=== PATIENT | female | born 1995 | race African-American/Black ===

== ENCOUNTER 2017-08-03 20:59 | Emergency (ER) | payer SELFPAY ==
[~2017-08-03] VITALS: Ht 165.1 cm; Wt 102.5 kg
[2017-08-04 05:07] VITALS: BP 109/58
== END 2017-08-04 05:07 | disposition home or self-care (01) ==
LOC: ER 21:27
DX: G44.89 Other headache syndrome (principal); F12.10 Cannabis abuse, uncomplicated
CPT/HCPCS: 81025; 82962; 99282

== ENCOUNTER 2024-08-04 00:04 | Emergency (ER) | payer MEDICAID ==
[~2024-08-04] VITALS: Ht 165.1 cm; Wt 95.0 kg
[2024-08-04 00:09] VITALS: O2SAT 98
[2024-08-04 00:16] VITALS: TEMP 36.9; O2SAT 99
[2024-08-04 01:58] VITALS: BP 111/66; PULSE 109; RESP 16
[2024-08-04] MEDS: DEXAMETHASONE 4MG/ML 1ML VIAL IM ONE (01:58)
[2024-08-04] MEDS: KETOROLAC 30MG/ML VIAL IM ONE (01:58)
[2024-08-04] MEDS ORDERED: AMOX-494 MT (02:01)
[2024-08-04] MEDS ORDERED: IBUP-2029 MT (02:01)
== END 2024-08-04 02:31 | disposition home or self-care (01) ==
LOC: ER 00:11
DX: J35.1 Hypertrophy of tonsils (principal); F12.10 Cannabis abuse, uncomplicated
CPT/HCPCS: 81025; 87430; 96372; 99284; J1100; J1885; Z7610 ×2